=== PATIENT | male | born 1975 | race Caucasian/White ===

== ENCOUNTER 2019-03-29 12:34 | Emergency (ER) | payer OTHER ==
--- NOTE | 2019-03-29 13:10 | UC ---
Hand/Wrist HPI - HPI Summary HPI Summary: Patient is a 44yo male presenting with R ring finger pain since yesterday when he states he caught his finger on a wire loop and described it being pulled laterally and "popping back into place." Notes swelling and bruising of the finger. Denies radiating pain. Notes decreased ROM due to pain and swelling. Denies decreased sensation. - History Of Current Complaint Chief Complaint: UCUpperExtremity Stated Complaint: RT HAND INJURY Hx Obtained From: Patient Onset/Duration: Sudden Onset Severity Currently: Mild Pain Intensity: 2 Pain Scale Used: 0-10 Numeric - Allergies/Home Medications Allergies/Adverse Reactions: Allergies Allergy/AdvReac Type Severity Reaction Status Date / Time Penicillins Allergy Rash Verified 03/29/19 12:50 Home Medications: Home Medications Gerd Medication 1 tab PO DAILY 03/29/19 [History] PMH/Surg Hx/FS Hx/Imm Hx Previously Healthy: Yes - Surgical History Surgical History: Yes Surgery Procedure, Year, and Place: eye - Family History Known Family History: Positive: Non-Contributory - Social History Occupation: Employed Full-time Alcohol Use: Occasionally Substance Use Type: None Smoking Status (MU): Heavy Every Day Tobacco Smoker Type: Cigarettes Amount Used/How Often: 1/2 PPD Review of Systems All Other Systems Reviewed And Are Negative: Yes Constitutional: Positive: Negative Skin: Positive: Bruising - R ring finger Respiratory: Positive: Negative Cardiovascular: Positive: Negative Neurovascular: Positive: Negative Musculoskeletal: Positive: Arthralgia - R ring finger, Decreased ROM - R right finger d/t pain and swelling, Edema - R ring finger Neurological: Negative: Paresthesia, Numbness Physical Exam Triage Information Reviewed: Yes Appearance: Well-Appearing, No Pain Distress, Well-Nourished Vital Signs: Initial Vital Signs Temp 98 F 03/29/19 12:51 Pulse 76 03/29/19 12:51 Resp 18 03/29/19 12:51 BP 139/92 03/29/19 12:51 Pulse Ox 98 03/29/19 12:51 Vital Signs Reviewed: Yes Eyes: Positive: Conjunctiva Clear ENT: Positive: Hearing grossly normal Neck: Positive: Supple Respiratory: Positive: No respiratory distress Cardiovascular: Positive: Pulses Normal, Brisk Capillary Refill Musculoskeletal: Positive: ROM Limited @ - R ring finger flexion d/t pain, Edema @ - proximal R ring finger, Other: - tenderness over PIP joint of R ring finger Neurological Exam: Other - sensation grossly intact Neurological: Positive: Alert Psychological: Positive: Age Appropriate Behavior Skin: Positive: Other - ecchymosis noted over PIP joint of R ring finger Diagnostics - Radiology R ring finger Radiology Interpretation Completed By: Radiologist Summary of Radiographic Findings: IMPRESSION: SOFT TISSUE SWELLING, NO FRACTURE IS SEEN. Hand/Wrist Course/Dx - Course Course Of Treatment: Discussed negative x-rays with patient. Instructed to continue symptomatic treatment. Patient declined finger splint. Instructed to follow up with PCP if pain persists. Patient voiced understanding and agreed with the treatment plan. - Differential Dx/Diagnosis Provider Diagnosis: Sprain of right ring finger Discharge ED - Sign-Out/Discharge Documenting (check all that apply): Patient Departure All imaging exams completed and their final reports reviewed: Yes - Discharge Plan Condition: Stable Disposition: HOME Patient Education Materials: Finger Sprain (ED) Referrals: [facility] [Outside] - If Needed [facility] [Outside] - If Needed Doug Contreras MD [Medical Doctor] - If Needed Additional Instructions: As discussed, the xrays did not show any fractures. Rest, ice, and elevate to help relieve pain and swelling. You may also use over the counter pain medications as directed for relief of pain. If pain does not resolve, follow up with your PCP or orthopedics as listed below. Return or go to the emergency room if pain worsens, the finger becomes cold and numb, or you are unable to move the finger. - Billing Disposition and Condition Condition: STABLE Disposition: Home - Attestation Statements Provider Attestation: This patient was not seen or examined by me. I was available for consult. Chart reviewed LIBIA
== END 2019-03-29 13:54 | disposition home or self-care (01) ==
LOC: UCCORT 12:34
DX: S63.614A Unspecified sprain of right ring finger, initial encounter (principal); F17.210 Nicotine dependence, cigarettes, uncomplicated; M79.89 Other specified soft tissue disorders; Z88.0 Allergy status to penicillin; W23.0XXA Caught, crushed, jammed, or pinched between moving objects, initial encounter; Y92.9 Unspecified place or not applicable
CPT/HCPCS: 73140; 99201; G0463